=== PATIENT | male | born 1960 | race Caucasian/White ===

== ENCOUNTER 2016-11-16 07:07 | Emergency (ER) | payer OTHER ==
[~2016-11-16 07:07] MED LIST: 8 HOUR650 MG PO; ADVIL PO; ASAB PO; BIOTIN10 MG PO; CRESTOR10 PO; EFFEXOR XR150 MG PO; GLUCPH PO; KLONO1 PO; LISINOPRIL40 MG PO; LOP50 PO; MELA3 PO; PLAVIX; PR25 PO; REMERON SLTB45 MG PO; ROXICET1 TAB PO; ZANAFLEX2 MG PO; [UNRECOGNIZED DRUG - OTHER]
== END 2016-11-16 07:37 | disposition home or self-care (01) ==
LOC: ER 07:07
DX: K22.2 Esophageal obstruction (principal); I10 Essential (primary) hypertension; I25.10 Atherosclerotic heart disease of native coronary artery without angina pectoris; C61 Malignant neoplasm of prostate; Z90.89 Acquired absence of other organs; Z79.82 Long term (current) use of aspirin; Z79.899 Other long term (current) drug therapy; Z90.79 Acquired absence of other genital organ(s)
CPT/HCPCS: 99283